=== PATIENT | female | born 1995 | race Caucasian/White ===

== ENCOUNTER 2017-11-22 12:55 | Emergency (ER) | payer OTHER ==
[~2017-11-22] VITALS: Ht 149.9 cm; Wt 52.2 kg
[~2017-11-22 12:55] MED LIST: BUSP30TA2 PO; GABA-534 PO; HYDR453.3 TP; NAPR500T6 PO; NORG1TAB10 PO; OXCA150T5 GT
[2017-11-22] MEDS ORDERED: LORAZEPAM 0.5 MG TABLET PO ONE (13:15)
[2017-11-22] MEDS ORDERED: LORAZEPAM 1 MG TABLET ONE (13:21)
--- NOTE | 2017-11-22 13:22 | NUR ---
PT IS IN ROOM #1B. DR COSBY EVALUATED THE PT.
--- NOTE | 2017-11-22 13:38 | NUR ---
PT WAS D/C TO HOME AFTER DR COSBY EVALUATION. D/C INSTRUCTIONS GIVEN TO THE PT BY DR COSBY.
[2017-11-22 13:39] VITALS: BP 128/77
== END 2017-11-22 13:40 | disposition home or self-care (01) ==
LOC: ER 12:55
DX: F41.9 Anxiety disorder, unspecified (principal); Z88.8 Allergy status to other drugs, medicaments and biological substances; Z79.1 Long term (current) use of non-steroidal anti-inflammatories (NSAID); Z79.899 Other long term (current) drug therapy
CPT/HCPCS: A4663